=== PATIENT | female | born 1990 | race Caucasian/White ===

== ENCOUNTER → 2023-03-11 | Outpatient (CLI) | payer SELFPAY ==
[2023-03-11 09:32] LABS: Hematocrit 41.5 % (37-47); Hemoglobin 13.8 g/dL (12.0-15.0); Mean Corp Hgb Conc 33.3 g/dL (32-36); Mean Corpuscular Hgb 31.4 pg (27.0-32.0); Mean Corpuscular Volume 94.5 fL (81-99); Mean Platelet Vol. 10.5 fl (6.2-12.0); Platelet Count 322 K/mm3 (150-450); RBC Distribution Width CV 12.2 % (11.6-14.6); RBC Distribution Width SD 42.5 fl (35.1-43.9); Red Blood Count 4.39 M/mm3 (4.2-5.4); White Blood Count 5.4 K/mm3 (4.4-11.0)
[2023-03-11 09:57] LABS: Internal QC Validated? YES +Cl - CLEAR BKGD; Pregnancy, Serum, hCG Quali. NEGATIVE Negative
[2023-03-11 10:00] LABS: Anion Gap 3 (5-15); BUN 9 mg/dL (7-18); BUN/Creat Ratio 12.6 RATIO (10-20); Calcium,Total 9.5 mg/dL (8.5-10.1); Chloride 109 mmol/L (98-107); Creatinine, Serum 0.71 mg/dL (0.55-1.02); EST Glomerular Filtration Rate 99 mL/min (>60); Est Glom Filt Rate - Afr Amer 120 mL/min (>60); Glucose 95 mg/dL (74-106); Potassium 3.7 mmol/L (3.5-5.1); Sodium Level 140 mmol/L (136-145)
--- NOTE | 2023-03-11 17:33 | TILTTABLE_ITS ---
Staff Staff: Brittany Hightower and Kimberley Mace Summary Pre Test Resting HR: 69 Pre Test Resting BP: 106/63 Physician Tilt Table Report Patient's Physicians Primary Care Physician: Shirin Parnell Indications/Diagnosis: Procedure Comments: Summary:
--- NOTE | 2023-03-11 17:33 | PCM.TILTTABL ---
Staff Staff: Brittany Hightower and Kimberley Mace Summary Pre Test Resting HR: 69 Pre Test Resting BP: 106/63 Minimum Test HR: 71 Maximum Test HR: 144 Minimum Test BP: 93/54 Maximum Test BP: 144/66 Physician Tilt Table Report Patient's Physicians Primary Care Physician: Shirin Parnell Indications/Diagnosis: Syncope Procedure Comments: Patient was brought to the noninvasive lab in the postabsorptive nonsedated state. Informed consent was obtained. Initial heart rate was noted to be 69 bpm with a blood pressure 106/63 mmHg. The patient was then put in the 70 degree upright tilt position for 20 minutes continuous EKG monitoring was performed the heart rate within approximately 10 minutes went up to 144 bpm which was sinus rhythm and then slowly came back down into the mid 70s. Patient complained of some dizziness and at the conclusion of the test appeared to maintain a heart rate of approximately 100 bpm and blood pressure 144/66 mmHg. Patient continued heart rate and blood pressure monitoring throughout the end of the test. Summary: Head upright tilt table test with increasing heart rate suggestive of POTS syndrome.
[2023-03-11 17:35] VITALS: BP 106/63
[2023-03-11 17:43] VITALS: BP 144/66; BP 93/54
== END | disposition home or self-care (01) ==
LOC: CVS 09:04
PROVIDERS: PCP Physician Assistant
DX: R42 Dizziness and giddiness (principal)
CPT/HCPCS: 36415; 80048; 84703; 85027; 93660; J7040; A4216